=== PATIENT | male | born 1955 | race Caucasian/White ===

== ENCOUNTER 2021-03-24 02:39 | Inpatient (IN) | payer MEDICAID ==
[~2021-03-24] VITALS: Ht 172.7 cm; Wt 74.8 kg
[2021-03-24] MEDS ORDERED: DEXTROSE 50% SYRINGE 50 ML IV ONE ×2 (03:02→05:43)
[2021-03-24 03:27] LABS: Mean Corpuscular Volume 111.3 fL (80.0-100.0)
[2021-03-24 03:28] LABS: Hematocrit 47.9 % (41.0-53.0); Hemoglobin 16.1 g/dL (13.5-17.5); Mean Corpuscular Hemoglobin 37.4 pg (28.0-32.0); Mean Corpuscular Hgb Conc. 33.6 g/dL (32.0-36.0); Red Cell Distribution Width 15.6 % (11.8-14.3)
[2021-03-24] MEDS ORDERED: HALOPERIDOL LACTATE 5 MG/ML INJ VIAL IM ONE (03:30)
[2021-03-24 03:40] LABS: INR 1.49 (0.9-1.15); Partial Thromboplastin Time 32.3 sec (23.6-33.0)
[2021-03-24 03:43] LABS: Alanine Aminotransferase 54 U/L (16-61); Albumin 1.4 g/dL (3.4-5.0); Anion Gap 37 (5-15); Aspartate Aminotransferase 114 U/L (15-37); BUN/Creatinine Ratio 17.4; Blood Alcohol < 3.0 mg/dL (0-5); Calcium 8.4 mg/dL (8.5-10.1); Carbon Dioxide 13 mmol/L (21-32); Chloride 86 mmol/L (98-107); GFR African American 12 mL/min; GFR Non-African American 10 mL/min; Potassium 4.4 mmol/L (3.5-5.1); Sodium 136 mmol/L (136-145)
[2021-03-24] MEDS ORDERED: NOREPINEPHRINE 8 MG/250ML KIT 250 ML IV ONE ×2 (03:56→15:34)
[2021-03-24] MEDS ORDERED: DEXTROSE 10% 1,000 ML IV ONE (04:00)
[2021-03-24] MEDS ORDERED: ROCURONIUM 10MG/ML 10ML VIAL IV ONE (04:00)
[2021-03-24] MEDS ORDERED: ETOMIDATE (2MG/ML) 20ML VIAL IV ONE (04:00)
[2021-03-24] MEDS: NOREPINEPHRINE 8 MG/250ML KIT 250 ML IV SCH ×2 (04:00→08:30)
[2021-03-24] MEDS ORDERED: fentaNYL Drip 2500mCg/250mlNS 250 ML IV SCH (04:00)
[2021-03-24] MEDS ORDERED: MIDAZOLAM DRIP 50 mg/50mL 50 ML IV SCH (04:00)
[2021-03-24] MEDS ORDERED: MIDAZOLAM DRIP 50 mg/50mL 50 ML IV ONE (04:02)
[2021-03-24] MEDS ORDERED: fentaNYL Drip 2500mCg/250mlNS 250 ML IV ONE (04:02)
[2021-03-24 04:10] LABS: Blood Urea Nitrogen 108 mg/dL (7-18); Glucose 35 mg/dL (74-106)
[2021-03-24] MEDS ORDERED: PHENYLEPHRINE IV 250 ML IV ONE (04:18)
[2021-03-24 04:19] LABS: Basophils % (manual) 0 (0.0-2.0); Blast Cells 0; Eosinophils % (manual) 0 (0-7); Metamyelocytes % 0; Promyelocytes % 0; Reactive Lymphocytes 0; White Blood Cell 37.4 10^3/uL (4.4-10.8)
[2021-03-24 04:22] LABS: Alkaline Phosphatase 312 U/L (45-117); Bilirubin, Total 5.4 mg/dL (0.2-1.0); Total Protein 7.1 g/dL (6.4-8.2)
[2021-03-24 04:25] LABS: Magnesium 4.6 mg/dL (1.6-2.6)
[2021-03-24] MEDS ORDERED: SODIUM BICARBONATE 50ML VIAL 150 ML in D5W 5% 1,000 ML IV ONE (04:30)
[2021-03-24] MEDS: PHENYLEPHRINE IV 250 ML IV SCH ×2 (04:33→08:30)
[2021-03-24] MEDS ORDERED: SODIUM BICARBONATE 8.4 % INJ 50ML VIAL IV ONE (04:46)
[2021-03-24] MEDS ORDERED: PIPERACILLIN-TAZOB 3.375GM 100 ML IV ONE (05:00)
[2021-03-24 05:14] LABS: Band Neutrophils % (manual) 51; Lymphocytes % (manual) 16 (10.0-50.0); Monocytes % (manual) 10 (0-12); Myelocytes % 16
[2021-03-24] MEDS ORDERED: ONDANSETRON HCL 4 MG/2 ML VIAL IV PRN (06:00)
[2021-03-24] MEDS ORDERED: D5W/SOD CHL 0.45% 1,000 ML IV SCH (06:00)
[2021-03-24] MEDS ORDERED: PIPERACILLIN-TAZOB 2.25GM 50 ML IV SCH ×2 (06:00→12:00)
[2021-03-24] MEDS ORDERED: MORPHINE SULFATE INJECTION 2 MG/ML SYRG IV PRN (06:00)
[2021-03-24] MEDS ORDERED: VANCOMYCIN PER PHARMACY 0 MG IV SCH (06:00)
[2021-03-24] MEDS ORDERED: DEXTROSE (50%) 50ML SYRG IV PRN (06:00)
[2021-03-24] MEDS ORDERED: ALBUMIN 25% 50 ML IV SCH (06:00)
[2021-03-24] MEDS ORDERED: ACETAMINOPHEN 650 MG RECT SUPP PR PRN (06:00)
[2021-03-24] MEDS ORDERED: NITROGLYCERIN 0.4 MG SL TAB SL PRN (06:00)
[2021-03-24 06:30] VITALS: BP 99/28
[2021-03-24] MEDS ORDERED: DEXTROSE (50%) 50ML SYRG IV ONE (06:45)
[2021-03-24] MEDS ORDERED: DEXTROSE (25%) 10 ML SYRG IV ONE (06:45)
[2021-03-24 07:49] LABS: Hematocrit 38.9 % (41.0-53.0); Hemoglobin 11.9 g/dL (13.5-17.5); Mean Corpuscular Hemoglobin 36.6 pg (28.0-32.0); Mean Corpuscular Hgb Conc. 30.7 g/dL (32.0-36.0); Mean Corpuscular Volume 119.2 fL (80.0-100.0); Red Blood Cells 3.26 10^6/uL (4.5-5.90); Red Cell Distribution Width 16.6 % (11.8-14.3)
[2021-03-24 07:58] LABS: White Blood Cell 47.6 10^3/uL (4.4-10.8)
[2021-03-24 07:59] LABS: Basophils % (manual) 0 (0.0-2.0); Blast Cells 0; Metamyelocytes % 0
[2021-03-24] MEDS ORDERED: ACCU-CHEK COMFORT CURVE STRIP VI SCH (08:00)
[2021-03-24] MEDS ORDERED: InsuLIN REG 1unit/0.01ml Soln (100units/ml) SC SCH (08:00)
[2021-03-24 08:52] LABS: BUN/Creatinine Ratio 17.3; Calcium 7.2 mg/dL (8.5-10.1)
[2021-03-24 08:53] VITALS: BP 88/27
[2021-03-24 08:54] LABS: Bilirubin, Total 4.2 mg/dL (0.2-1.0); Total Protein 5.5 g/dL (6.4-8.2)
[2021-03-24 08:55] LABS: Potassium 5.9 mmol/L (3.5-5.1)
[2021-03-24] MEDS: LACTULOSE 10g/15ml SOLN PR SCH ×2 (09:04→11:54)
[2021-03-24] MEDS ORDERED: HEPARIN SODIUM (PORCINE) 5000 UNITS/ML 1ML VIAL SC SCH (10:00)
[2021-03-24] MEDS ORDERED: FAMOTIDINE (10MG/ML) 2ML VL IV SCH (10:00)
[2021-03-24] MEDS ORDERED: VANCOMYCIN 1GM/250ML 250 ML IV ONE ×2 (10:30→12:00)
[2021-03-24] MEDS ORDERED: DOPamine 1600MCG/ML D5W 250 ML IV SCH (11:00)
[2021-03-24] MEDS ORDERED: NOREPINEPHRINE BITARTRATE 32 MG in SODIUM CHL 0.9% 218 ML IV SCH (11:00)
[2021-03-24] MEDS ORDERED: EPINEPHrine HCL INJECTION 16 MG in D5W 5% 234 ML IV SCH (11:00)
[2021-03-24] MEDS ORDERED: VASOPRESSIN 50 UNITS in D5W 5% 247.5 ML IV SCH (11:00)
[2021-03-24] MEDS ORDERED: PHENYLEPHRINE INJ 80 MG in SODIUM CHL 0.9% 242 ML IV SCH (11:00)
[2021-03-24 11:04] LABS: Band Neutrophils % (manual) 37; Eosinophils % (manual) 3 (0-7); Lymphocytes % (manual) 19 (10.0-50.0); Monocytes % (manual) 10 (0-12); Myelocytes % 5; Promyelocytes % 5; Reactive Lymphocytes 3
[2021-03-24] MEDS ORDERED: CALCIUM GLUC 1,000mg/50ml-NS 50 ML IV ONE (11:15)
[2021-03-24] MEDS ORDERED: FUROSEMIDE 40 MG/4 ML VIAL IV ONE (11:15)
[2021-03-24] MEDS ORDERED: ALBUTEROL SULF 2.5 MG/0.5ML(0.5%) NEB SOLN NEB ONE (11:15)
[2021-03-24] MEDS ORDERED: ALBUTEROL SULF 2.5 MG/0.5ML(0.5%) NEB SOLN ONE (11:42)
[2021-03-24] MEDS ORDERED: SODIUM BICARBONATE 50ML VIAL 150 ML in D5W 5% 1,000 ML IV SCH (11:45)
[2021-03-24 13:44] VITALS: BP 113/39
[2021-03-24 15:24] VITALS: BP 113/39
== END 2021-03-24 15:50 | DRG 720 ==
LOC: ER 02:39 → TELE 05:59
PROVIDERS: ADMIT Nurse Practitioner Family; ATTEND Internal Medicine Pulmonary Disease
PROC: 06HY33Z Insertion of Infusion Device into Lower Vein, Percutaneous Approach (ICD-10-PCS; principal; 2021-03-24)
PROC: 5A1935Z Respiratory Ventilation, Less than 24 Consecutive Hours (ICD-10-PCS; 2021-03-24)
PROC: 0BH17EZ Insertion of Endotracheal Airway into Trachea, Via Natural or Artificial Opening (ICD-10-PCS; 2021-03-24)
DX: A41.9 Sepsis, unspecified organism (principal); J96.01 Acute respiratory failure with hypoxia; K72.00 Acute and subacute hepatic failure without coma; R65.21 Severe sepsis with septic shock; K65.9 Peritonitis, unspecified; E87.2 Acidosis; K57.20 Diverticulitis of large intestine with perforation and abscess without bleeding; K72.90 Hepatic failure, unspecified without coma; Z66 Do not resuscitate; N17.9 Acute kidney failure, unspecified; J44.1 Chronic obstructive pulmonary disease with (acute) exacerbation; Z99.11 Dependence on respirator [ventilator] status; R65.20 Severe sepsis without septic shock; E16.2 Hypoglycemia, unspecified; E87.5 Hyperkalemia; Z20.822 Contact with and (suspected) exposure to COVID-19; F10.20 Alcohol dependence, uncomplicated; Y90.0 Blood alcohol level of less than 20 mg/100 ml
CPT/HCPCS: 31500; 36415; 36600; 70450; 71045; 74176; 80053; 80320; 80329; 82140; 82805; 82962; 83605; 83735; 83880; 84484; 85007; 85027; 85610; 85730; 86850; 86900; 86901; 87040; 87070; 87077; 87186; 87205; 87426; 93005; 94002; 94003; 96365; 96372; 99291; G0378; J0171; J2250; J2543; J3490; J7060